=== PATIENT | female | born 1945 | race Caucasian/White ===

== ENCOUNTER 2025-02-15 17:16 | Inpatient (IN) | payer MEDICARE, OTHER ==
[~2025-02-15] VITALS: Ht 162.6 cm; Wt 80.7 kg
[2025-02-15 17:48] LABS: PLATELET COUNT (AUTO) 171 K/uL (150-450); RED BLOOD CELL COUNT(AUTO) 4.18 MIL/uL (4.0-5.2); RED CELL DISTRIBUTION WIDTH 14.4 % (11.5-15.0); WHITE BLOOD COUNT (AUTO) 4.8 K/uL (4.3-11.0)
[2025-02-15] MEDS ORDERED: LORA-259 PO (17:53)
[2025-02-15] MEDS ORDERED: FURO-144 PO (17:53)
[2025-02-15] MEDS ORDERED: ARIP15TA3 PO (17:53)
[2025-02-15] MEDS ORDERED: PROP10TA10 PO (17:53)
[2025-02-15] MEDS ORDERED: POTA-88 PO (17:53)
[2025-02-15] MEDS ORDERED: HYDR-4209 PO (17:53)
[2025-02-15] MEDS ORDERED: ESCI5TAB PO (17:53)
[2025-02-15] MEDS ORDERED: QUET25TA PO (17:53)
[2025-02-15] MEDS ORDERED: HYDR-4076 PO (17:53)
[2025-02-15 17:57] LABS: CALCIUM, SERUM 9.1 mg/dL (8.5-10.1); CREATININE 1.9 mg/dL (0.6-1.3); SODIUM SERUM 141.0 mmol/L (136-145); UREA NITROGEN, BLOOD 36.0 mg/dL (7-18)
[2025-02-15 18:04] LABS: ASPARTATE AMINOTRANSFERASE 16.0 U/L (15-37); LACTIC ACID 1.1 mmol/L (0.4-2.0); TOTAL PROTEIN, SERUM 6.4 g/dL (6.4-8.2)
[2025-02-15 18:10] LABS: INR 0.98 (0.91-1.10)
[2025-02-15 18:31] LABS: APPEARANCE,URINE CLEAR (CLEAR); BLOOD, URINE NEGATIVE Ery/uL (NEGATIVE); LEUKOCYTE ESTERASE ,URINE NEGATIVE (NEGATIVE); NITRITE, URINE NEGATIVE (NEGATIVE); UGLUCOSE NEGATIVE (NEGATIVE)
[2025-02-15 18:35] LABS: ALCOHOL, BLOOD < 3 mg/dL (0-10)
[2025-02-15] MEDS ORDERED: MORPHINE SULFATE INJ 2 MG/ML DISP.SYRIN ONE (18:40)
[2025-02-15 18:42] LABS: ADD URINE CULTURE NO
[2025-02-15] MEDS: MORPHINE SULFATE INJ 2 MG/ML DISP.SYRIN IV PRN (18:45)
[2025-02-15] MEDS: MORPHINE SULFATE INJ 2 MG/ML DISP.SYRIN IV ONE (19:00)
[2025-02-15 20:30] VITALS: BP 109/73; TEMP 97.5; O2SAT 98
[2025-02-15] MEDS ORDERED: MAG HYDROX/AL HYDROX/SIMETH 30 ML UDC PO PRN (21:00)
[2025-02-15] MEDS ORDERED: Z GUARD REMEDY 4 OZ OINT TP PRN (21:00)
[2025-02-15] MEDS ORDERED: HYDROCODONE/APAP 5/325MG TABLET PO PRN (21:00)
[2025-02-15] MEDS ORDERED: LORAZEPAM 1 MG TABLET PO PRN (21:00)
[2025-02-15] MEDS: PROPRANOLOL HCL 10 MG TABLET PO SCH (21:00)
[2025-02-15] MEDS ORDERED: ONDANSETRON HCL/PF 4 MG/2 ML VIAL IVP PRN (21:00)
[2025-02-15] MEDS ORDERED: ZOLPIDEM TARTRATE 5 MG TABLET PO PRN (21:00)
[2025-02-15 21:34] LABS: ABG BASE EXCESS -3.2 mmol/L (-2.0-3.0); ABG OXYGEN SATURATION 91.4 % (94.0-98.0); ABG PCO2 86.3 mmHg (32.0-45.0); ABG PH 7.132 (7.350-7.450); ABG PO2 78.2 mmHg (83.0-108.0); ABG TOTAL HEMOGLOBIN 13.8 G/dL (12.0-16.0); FLOW, BLOOD GAS 7.00 L/min (0.00-30.00); FRACTIONATED INSPIRED OXYGEN 48.0 %
[2025-02-15] MEDS ORDERED: BUMETANIDE INJ 4 MG in IV NS 0.9% 24 ML IV ONE (22:30)
[2025-02-15] MEDS: FUROSEMIDE 40 MG/4 ML VIAL IV ONE (22:30)
[2025-02-15] MEDS: HEPARIN SODIUM, PORCINE 5000 UNITS/1 ML VIAL SQ SCH (22:46)
[2025-02-15] MEDS: ALBUTEROL FS 2.5 MG/3 ML VIAL.NEB NEB ONE (22:58)
[2025-02-15] MEDS: IPRATROPIUM NEB FS 0.5 MG/2.5 ML AMPUL.NEB NEB ONE (22:58)
[2025-02-15 23:00] VITALS: BP 116/78; O2SAT 97
[2025-02-15] MEDS: NALOXONE HCL 0.4 MG/ML AMPUL IV ONE (23:15)
[2025-02-16] VITALS (38 sets, daily range): BP systolic 92–126; BP diastolic 52–86; TEMP 96.9–97.9; O2SAT 94–100
[2025-02-16] MEDS: FUROSEMIDE 20 MG/2 ML VIAL IV SCH (00:24)
[2025-02-16] MEDS ORDERED: ALBUTEROL FS 2.5 MG/3 ML VIAL.NEB NEB PRN (01:00)
[2025-02-16 01:11] LABS: ABG BASE EXCESS -1.3 mmol/L (-2.0-3.0); ABG OXYGEN SATURATION 98.1 % (94.0-98.0); ABG PCO2 61.6 mmHg (32.0-45.0); ABG PH 7.260 (7.350-7.450); ABG PO2 129.0 mmHg (83.0-108.0); ABG TOTAL HEMOGLOBIN 13.9 G/dL (12.0-16.0); FRACTIONATED INSPIRED OXYGEN 40.0 %; SET RATE, BG 16.0; SITE, ABG RIGHT RADIAL
[2025-02-16 06:11] LABS: AMPHETAMINE, URINE NEGATIVE (NEGATIVE); BARBITURATE, URINE NEGATIVE (NEGATIVE); BENZODIAZEPINE, URINE NEGATIVE (NEGATIVE); CANNABINOID, URINE NEGATIVE (NEGATIVE); COCCAINE, URINE NEGATIVE (NEGATIVE); OPIATE, URINE NEGATIVE (NEGATIVE)
[2025-02-16 06:57] LABS: PLATELET COUNT (AUTO) 152 K/uL (150-450); RED BLOOD CELL COUNT(AUTO) 4.21 MIL/uL (4.0-5.2); RED CELL DISTRIBUTION WIDTH 15.2 % (11.5-15.0); WHITE BLOOD COUNT (AUTO) 4.6 K/uL (4.3-11.0)
[2025-02-16 07:17] LABS: LDL 78.0 mg/dL (0-99)
[2025-02-16] MEDS: PANTOPRAZOLE 40 MG TABLET.DR PO SCH (07:30)
[2025-02-16 08:00] LABS: CALCIUM, SERUM 8.9 mg/dL (8.5-10.1); CREATININE 1.9 mg/dL (0.6-1.3); PHOSPHORUS 3.9 mg/dL (2.5-4.9); SODIUM SERUM 143.0 mmol/L (136-145); UREA NITROGEN, BLOOD 35.0 mg/dL (7-18)
[2025-02-16] MEDS: ARIPIPRAZOLE 5 MG TABLET PO SCH (08:04)
[2025-02-16] MEDS: ESCITALOPRAM OXALATE (10 MG) 10 MG TABLET PO SCH (08:04)
[2025-02-16] MEDS: QUETIAPINE FUMARATE 25 MG TABLET PO SCH (08:05)
[2025-02-16] MEDS: FUROSEMIDE 40 MG/4 ML VIAL IV SCH (08:08)
[2025-02-16 08:39] LABS: ABG BASE EXCESS -1.0 mmol/L (-2.0-3.0); ABG OXYGEN SATURATION 96.0 % (94.0-98.0); ABG PCO2 45.4 mmHg (32.0-45.0); ABG PH 7.355 (7.350-7.450); ABG PO2 84.9 mmHg (83.0-108.0); ABG TOTAL HEMOGLOBIN 13.5 G/dL (12.0-16.0); FLOW, BLOOD GAS 2.00 L/min (0.00-30.00); FRACTIONATED INSPIRED OXYGEN 28.0 %; SITE, ABG RIGHT BRACHIAL
[2025-02-16] MEDS ORDERED: FUROSEMIDE 40 MG TABLET PO SCH ×2 (09:00)
[2025-02-16] MEDS ORDERED: LEVOFLOXACIN 500 MG /D5W 100ML 100 ML IV SCH (10:30)
[2025-02-16] MEDS: ALBUTEROL FS 2.5 MG/3 ML VIAL.NEB NEB SCH (11:30)
[2025-02-16] MEDS: LEVOFLOXACIN 750 MG /D5W 150ML 750 MG in PREMIX 1 EA IV SCH (11:31)
[2025-02-17] VITALS (23 sets, daily range): BP systolic 100–126; BP diastolic 63–81; TEMP 97.4–97.7; O2SAT 90–99
[2025-02-17 05:30] LABS: PLATELET COUNT (AUTO) 167 K/uL (150-450); RED BLOOD CELL COUNT(AUTO) 4.38 MIL/uL (4.0-5.2); RED CELL DISTRIBUTION WIDTH 14.3 % (11.5-15.0); WHITE BLOOD COUNT (AUTO) 4.7 K/uL (4.3-11.0)
[2025-02-17 05:47] LABS: CREATINE KINASE, TOTAL 91.0 U/L (26-192)
[2025-02-17 06:09] LABS: ASPARTATE AMINOTRANSFERASE 15.0 U/L (15-37); CALCIUM, SERUM 9.2 mg/dL (8.5-10.1); CREATININE 2.1 mg/dL (0.6-1.3); PHOSPHORUS 4.6 mg/dL (2.5-4.9); SODIUM SERUM 144.0 mmol/L (136-145); TOTAL PROTEIN, SERUM 6.5 g/dL (6.4-8.2); UREA NITROGEN, BLOOD 38.0 mg/dL (7-18)
[2025-02-17 10:23] LABS: ABG BASE EXCESS 2.0 mmol/L (-2.0-3.0); ABG OXYGEN SATURATION 96.4 % (94.0-98.0); ABG PCO2 51.1 mmHg (32.0-45.0); ABG PH 7.362 (7.350-7.450); ABG PO2 87.7 mmHg (83.0-108.0); ABG TOTAL HEMOGLOBIN 14.4 G/dL (12.0-16.0); FLOW, BLOOD GAS 1.00 L/min (0.00-30.00); FRACTIONATED INSPIRED OXYGEN 24.0 %; SITE, ABG LEFT RADIAL
[2025-02-17] MEDS: ACETAMINOPHEN 325 MG TABLET PO PRN (14:25)
[2025-02-18] VITALS (16 sets, daily range): BP systolic 107–138; BP diastolic 73–85; TEMP 97.5–98.3; O2SAT 96–99
[2025-02-18 07:31] LABS: PLATELET COUNT (AUTO) 171 K/uL (150-450); RED BLOOD CELL COUNT(AUTO) 4.67 MIL/uL (4.0-5.2); RED CELL DISTRIBUTION WIDTH 14.7 % (11.5-15.0); WHITE BLOOD COUNT (AUTO) 6.6 K/uL (4.3-11.0)
[2025-02-18 07:58] LABS: CALCIUM, SERUM 9.4 mg/dL (8.5-10.1); CREATININE 2.5 mg/dL (0.6-1.3); SODIUM SERUM 140.0 mmol/L (136-145); UREA NITROGEN, BLOOD 41.0 mg/dL (7-18)
[2025-02-18 08:07] LABS: PTH, INTACT 120 pg/mL (15-65)
[2025-02-18] MEDS: LORAZEPAM 0.5 MG TABLET PO ONE (10:21)
[2025-02-18] MEDS: LEVOFLOXACIN (250MG) 250 MG TABLET PO SCH (12:59)
[2025-02-19] VITALS (13 sets, daily range): BP systolic 113–130; BP diastolic 74–94; TEMP 97.3–98.1; O2SAT 96–100
[2025-02-19 07:54] LABS: PLATELET COUNT (AUTO) 167 K/uL (150-450); RED BLOOD CELL COUNT(AUTO) 4.82 MIL/uL (4.0-5.2); RED CELL DISTRIBUTION WIDTH 14.4 % (11.5-15.0); WHITE BLOOD COUNT (AUTO) 6.1 K/uL (4.3-11.0)
[2025-02-19 08:25] LABS: CALCIUM, SERUM 9.9 mg/dL (8.5-10.1); CREATININE 3.1 mg/dL (0.6-1.3); SODIUM SERUM 139.0 mmol/L (136-145); UREA NITROGEN, BLOOD 46.0 mg/dL (7-18)
[2025-02-19] MEDS: FAMOTIDINE (20 MG) 20 MG TABLET PO SCH (15:47)
[2025-02-19 19:34] LABS: APPEARANCE,URINE CLOUDY (CLEAR); BLOOD, URINE 3+ Ery/uL (NEGATIVE); LEUKOCYTE ESTERASE ,URINE 1+ (NEGATIVE); NITRITE, URINE NEGATIVE (NEGATIVE); UGLUCOSE NEGATIVE (NEGATIVE)
[2025-02-19 19:43] LABS: ADD URINE CULTURE YES
[2025-02-19] MEDS: IPRATROPIUM NEB FS 0.5 MG/2.5 ML AMPUL.NEB NEB PRN (19:58)
[2025-02-19 20:18] LABS: EOSINOPHIL,URINE Rare
[2025-02-19 20:19] LABS: CREATININE, URINE 243.3 MG/DL (30.0-125.0); URINE SODIUM, RANDOM 13.0 mmol/l (40-220); URINE TOTAL PROTEIN 114.7 mg/dL (0-11.9)
[2025-02-20] VITALS (13 sets, daily range): BP systolic 101–134; BP diastolic 60–94; TEMP 97.3–98.2; O2SAT 95–100
[2025-02-20 07:10] LABS: PLATELET COUNT (AUTO) 173 K/uL (150-450); RED BLOOD CELL COUNT(AUTO) 4.57 MIL/uL (4.0-5.2); RED CELL DISTRIBUTION WIDTH 14.5 % (11.5-15.0); WHITE BLOOD COUNT (AUTO) 6.3 K/uL (4.3-11.0)
[2025-02-20 08:01] LABS: CALCIUM, SERUM 9.8 mg/dL (8.5-10.1); CREATININE 3.4 mg/dL (0.6-1.3); SODIUM SERUM 140.0 mmol/L (136-145); UREA NITROGEN, BLOOD 50.0 mg/dL (7-18)
[2025-02-20] MEDS: IV NS 0.9% 1,000 ML IV SCH (11:21)
[2025-02-21] VITALS (13 sets, daily range): BP systolic 97–129; BP diastolic 48–98; TEMP 97.5–97.9; O2SAT 92–100
[2025-02-21 06:56] LABS: CALCIUM, SERUM 8.8 mg/dL (8.5-10.1); CREATININE 2.6 mg/dL (0.6-1.3); SODIUM SERUM 141.0 mmol/L (136-145); UREA NITROGEN, BLOOD 46.0 mg/dL (7-18)
[2025-02-21 07:04] LABS: PLATELET COUNT (AUTO) 139 K/uL (150-450); RED BLOOD CELL COUNT(AUTO) 4.07 MIL/uL (4.0-5.2); RED CELL DISTRIBUTION WIDTH 14.9 % (11.5-15.0); WHITE BLOOD COUNT (AUTO) 4.8 K/uL (4.3-11.0)
[2025-02-21] MEDS: MAGNESIUM HYDROXIDE 30 ML UDC PO PRN (12:45)
[2025-02-22] VITALS (11 sets, daily range): BP systolic 128–157; BP diastolic 75–92; TEMP 97.3–98.3; O2SAT 93–100
[2025-02-22] MEDS: IBUPROFEN 400 MG TABLET PO PRN (01:25)
[2025-02-22 07:41] LABS: PLATELET COUNT (AUTO) 147 K/uL (150-450); RED BLOOD CELL COUNT(AUTO) 4.23 MIL/uL (4.0-5.2); RED CELL DISTRIBUTION WIDTH 14.6 % (11.5-15.0); WHITE BLOOD COUNT (AUTO) 6.1 K/uL (4.3-11.0)
[2025-02-22 08:09] LABS: CALCIUM, SERUM 9.3 mg/dL (8.5-10.1); CREATININE 2.2 mg/dL (0.6-1.3); PHOSPHORUS 2.8 mg/dL (2.5-4.9); SODIUM SERUM 145.0 mmol/L (136-145); UREA NITROGEN, BLOOD 39.0 mg/dL (7-18)
[2025-02-22] MEDS: LORAZEPAM 1 MG TABLET PO ONE ×2 (09:00→13:50)
[2025-02-25 07:07] LABS: *SPE A/G RATIO 1.0 (0.7-1.7); *SPE ALBUMIN 3.0 g/dL (2.9-4.4); *SPE ALPHA-1-GLOBULIN 0.3 g/dL (0.0-0.4); *SPE ALPHA-2-GLOBULIN 0.8 g/dL (0.4-1.0); *SPE BETA GLOBULIN 0.9 g/dL (0.7-1.3); *SPE GLOBULIN, TOTAL 3.0 g/dL (2.2-3.9); *SPE M-SPIKE Not Observed g/dL (Not Observed); *SPE PROTEIN TOTAL 6.0 g/dL (6.0-8.5); *SPEGAMMA GLOBULIN 1.0 g/dL (0.4-1.8)
== END 2025-02-22 18:53 | DRG 291 ==
LOC: ER 17:22 → TELE1 18:26 → ICUOV 23:19 → ICU 02-16 07:27 → TELE1 02-17 11:29 → MEDSG1 02-19 08:50
PROVIDERS: ADMIT Registered Nurse Psychiatric/Mental Health; ATTEND Internal Medicine
PROC: 5A09357 Assistance with Respiratory Ventilation, Less than 24 Consecutive Hours, Continuous Positive Airway Pressure (ICD-10-PCS; principal; 2025-02-16)
DX: I13.0 Hypertensive heart and chronic kidney disease with heart failure and stage 1 through stage 4 chronic kidney disease, or unspecified chronic kidney disease (principal); G92.9 Unspecified toxic encephalopathy; I50.33 Acute on chronic diastolic (congestive) heart failure; J96.01 Acute respiratory failure with hypoxia; J96.02 Acute respiratory failure with hypercapnia; N00.8 Acute nephritic syndrome with other morphologic changes; E44.1 Mild protein-calorie malnutrition; N17.9 Acute kidney failure, unspecified; J90 Pleural effusion, not elsewhere classified; F03.94 Unspecified dementia, unspecified severity, with anxiety; N18.9 Chronic kidney disease, unspecified; F32.A Depression, unspecified; F20.9 Schizophrenia, unspecified; Z88.0 Allergy status to penicillin; Z79.899 Other long term (current) drug therapy; F41.9 Anxiety disorder, unspecified; E88.09 Other disorders of plasma-protein metabolism, not elsewhere classified; M79.7 Fibromyalgia; D72.10 Eosinophilia, unspecified; T50.915A Adverse effect of multiple unspecified drugs, medicaments and biological substances, initial encounter; Y92.9 Unspecified place or not applicable
CPT/HCPCS: 36415; 36600; 70450-TC; 71045-TC; 76770-TC; 80048-TC; 80053-TC; 80061-TC; 80076-TC; 81001; 82550-TC; 82570-TC; 82803-TC; 83605-TC; 83735-TC; 83880; 83970; 84100-TC; 84155; 84165; 84300-TC; 84443-TC; 85025-TC; 85730-TC; 87040-TC; 87081-TC; 87086-TC; 92526; 92611; 93307-TC; 94760-TC; 94762-TC; 94799-TC; A4216; A4223; A6213; G0378; G0480; J1644; J1938; J1956; J2270; J3490; J7030; J7050

== ENCOUNTER 2025-06-09 21:32 | Emergency (ER) | payer MEDICARE, OTHER ==
[~2025-06-09] VITALS: Ht 154.9 cm; Wt 90.7 kg
[~2025-06-09 21:32] MED LIST: ARIP15TA3 PO; ESCI5TAB PO; FURO-144 PO; HYDR-4076 PO; HYDR-4209 PO; LORA-259 PO; POTA-88 PO; PROP10TA10 PO; QUET25TA PO
[2025-06-09] MEDS ORDERED: IBUPROFEN 400 MG TABLET ONE (22:42)
[2025-06-09] MEDS: IBUPROFEN 400 MG TABLET PO ONE (22:42)
[2025-06-10 00:07] VITALS: BP 124/78; TEMP 98.2; O2SAT 94
== END 2025-06-10 00:07 ==
LOC: ER 21:34
DX: S83.91XA Sprain of unspecified site of right knee, initial encounter (principal); S83.92XA Sprain of unspecified site of left knee, initial encounter; M47.812 Spondylosis without myelopathy or radiculopathy, cervical region; M17.0 Bilateral primary osteoarthritis of knee; I12.9 Hypertensive chronic kidney disease with stage 1 through stage 4 chronic kidney disease, or unspecified chronic kidney disease; F20.9 Schizophrenia, unspecified; N18.9 Chronic kidney disease, unspecified; F03.94 Unspecified dementia, unspecified severity, with anxiety; Z79.899 Other long term (current) drug therapy; Z88.0 Allergy status to penicillin; Z99.3 Dependence on wheelchair; W18.30XA Fall on same level, unspecified, initial encounter; Y93.89 Activity, other specified; Y92.89 Other specified places as the place of occurrence of the external cause; Y99.8 Other external cause status
CPT/HCPCS: 70450-TC; 72125-TC; 73564-TC